=== PATIENT | male | born 1945 | race Caucasian/White ===

== ENCOUNTER 2021-11-20 07:47 | Day surgery (SDC) | payer MEDICARE ==
[~2021-11-20] VITALS: Ht 176.5 cm; Wt 80.0 kg
[~2021-11-20 07:47] MED LIST: BUPIVACAINE-EPI 0.5% 30 ML VIAL KIT. ONE; HYDROmorphone 2 MG/ML INJ. IVP PRN; MORPHINE SULFATE 2 MG/ML INJ. IVP PRN; PROCHLORPERAZINE 10 MG/2 ML VIAL. IVP PRN; fentaNYL PF VIAL 100 MCG/2 ML VIAL IVP PRN
[2021-11-20] MEDS ORDERED: INSULIN LISPRO 100 UNIT/ML 3ML VIAL for OP,RR ONLY. SQ PRN (08:15)
[2021-11-20] MEDS ORDERED: VITA1TAB19 PO (08:15)
[2021-11-20] MEDS ORDERED: LISI-130 PO (08:15)
[2021-11-20] MEDS ORDERED: HYDR-2145 PO (08:15)
[2021-11-20] MEDS ORDERED: METF10007 PO (08:15)
[2021-11-20] MEDS ORDERED: ASCO500C9 PO (08:15)
[2021-11-20] MEDS ORDERED: AMLO-186 PO (08:38)
[2021-11-20 08:40] VITALS: BP 158/76
[2021-11-20] MEDS: IV RINGERS,LACTATED 1000ML 1,000 ML IV SCH ×2 (08:44→12:34)
[2021-11-20] MEDS ORDERED: LIDOCAINE 2% PF 5 ML VIAL. ONE (09:03)
[2021-11-20] MEDS ORDERED: PHENYLEPHRINE in 0.9% NACL PF 1 MG/10 ML SYRINGE. IV ONE (09:03)
[2021-11-20] MEDS ORDERED: ONDANSETRON PF 4 MG/2 ML VIAL. ONE (09:03)
[2021-11-20] MEDS ORDERED: PROPOFOL 10 MG/ML (20ML) VIAL. IV ONE ×2 (09:03→10:11)
[2021-11-20] MEDS ORDERED: DEXAMETHASONE SOD PHOS 4 MG/ML VIAL ONE (09:03)
[2021-11-20] MEDS ORDERED: ePHEDrine PF IN SALINE 50 MG/10 ML SYRINGE. IV ONE (09:04)
[2021-11-20] MEDS ORDERED: SUCCINYLCHOLINE 200 MG/10 ML VIAL. ONE (09:08)
[2021-11-20] MEDS ORDERED: fentaNYL PF VIAL 100 MCG/2 ML VIAL ONE ×2 (09:10→11:53)
[2021-11-20] MEDS ORDERED: SEVOFLURANE 61 TO 120 MINUTES. IH ONE (10:27)
--- NOTE | 2021-11-20 11:28 | PDOC4 ---
Operative Note Operative Note Operative Note: Preoperative Diagnosis: Right inguinal hernia Postoperative Diagnosis: Same Procedure: Right inguinal hernia repair with mesh Surgeon: [employer] Operator: Irene JOHNSTON Anesthesia: General EBL: 10 mL Specimen: None Drains: None Complications: None Indication: The patient is a 76-year-old male who is referred with a right inguinal hernia. He was offered surgical repair. The risks of surgery were discussed which include bleeding, infection, visceral injury, pain, anesthetic risk, hernia recurrence, potential need for additional surgery procedure. He understands and would like to proceed. Description: The patient was taken the operating room and placed supine on the operating table. General anesthesia was performed. The right groin was shaved prepped with ChloraPrep and draped with sterile towels, sheets, and an Ioban. An incision was made in the skin lines with a scalpel. Cautery dissection was carried down to the external oblique. There was scar tissue present consistent with prior surgery however none was known based on his history. The external oblique was opened down to the external ring. The contents of the inguinal canal were digitally mobilized and encircled with a Lesia drain. There was a moderate indirect hernia sac with some fatty infiltration present. The sac was mobilized from the surrounding tissues and fully reduced. The defect was filled with a large Phasix mesh plug. The plug was sutured into position with 2-0 Vicryl. The inguinal floor was then reinforced with a Prolene keyhole mesh patch. The mesh was also sutured with 2-0 Vicryl. The external oblique was closed over the mesh with 2-0 Vicryl. Subcutaneous tissue was approximated with 3-0 Vicryl. Skin was closed with 4-0 Monocryl and infiltrated with half percent Marcaine with epinephrine. Steri-Strips and a sterile dressing were applied. The patient tolerated the procedure well and was sent to the recovery room in stable condition. At the end the case all counts were correct. THONY ZARCO MD Nov 20, 2021 11:28
[2021-11-20] MEDS ORDERED: HYDR-2761 PO (11:31)
--- NOTE | 2021-11-20 11:32 | DISCH ---
DISCHARGE INSTRUCTIONS Condition on Discharge Condition on Discharge: Stable Activity After Discharge Activity Instructions for Disc: Other, see below (No lifting over 20 lbs X 4 weeks, no driving while taking pain meds) Diet after Discharge Diet after Discharge: Regular Wound Incision Care Wound/Incision Care: Other, see below (keep dressing clean and dry X 72 hours, may then remove and shower) Follow-Up Follow up with: Dr Zarco in 2 weeks, call for appointment [phone] THONY ZARCO MD Nov 20, 2021 11:32
[2021-11-20] MEDS: fentaNYL PF VIAL 100 MCG/2 ML VIAL IVP PRN ×2 (11:55→12:34)
[2021-11-20] MEDS ORDERED: INSULIN LISPRO 100 UNIT/ML 3ML VIAL for OP,RR ONLY. SQ ONE (12:10)
[2021-11-20] MEDS ORDERED: HYDROcodone/APAP 5/325MG 1 TAB TABLET PO ONE (12:45)
[2021-11-20 12:50] VITALS: BP 140/70
== END 2021-11-20 15:51 | disposition home or self-care (01) ==
LOC: SURG 07:47
PROVIDERS: ATTEND Surgery
DX: K40.90 Unilateral inguinal hernia, without obstruction or gangrene, not specified as recurrent (principal); I10 Essential (primary) hypertension; E11.9 Type 2 diabetes mellitus without complications; Z87.891 Personal history of nicotine dependence; Z79.84 Long term (current) use of oral hypoglycemic drugs; Z79.899 Other long term (current) drug therapy; Z98.890 Other specified postprocedural states
CPT/HCPCS: 49505; 82962; J0330; J0690; J1100; J2370; J2405; J2704; J3010; A4364; A4452; A4930; A6402; C1781; J1815